=== PATIENT | female | born 1960 | race Caucasian/White ===

== ENCOUNTER 2020-09-04 17:23 | Emergency (ER) | payer MEDICAID ==
[~2020-09-04] VITALS: Ht 152.4 cm; Wt 63.1 kg
[2020-09-04 17:29] VITALS: Ht 152.4 cm; Wt 63.1 kg
[2020-09-04 18:14] VITALS: BP 151/55
== END 2020-09-04 18:14 | disposition home or self-care (01) ==
LOC: ED 17:23
DX: R04.0 Epistaxis (principal); Z98.890 Other specified postprocedural states